=== PATIENT | male | born 1990 | race Caucasian/White ===

== ENCOUNTER 2016-10-15 17:06 | Emergency (ER) | payer BC, OTHER ==
[2016-10-15 17:19] VITALS: BP 154/92
--- NOTE | 2016-10-15 17:50 | UC ---
Throat Pain/Nasal Iraj HPI - HPI Summary HPI Summary: 26 yo male with 4 day hx of fatigue and sore throat no fever no myalgias no n/v/d no hx mono - History of Current Complaint Chief Complaint: UCRespiratory Stated Complaint: SORE THROAT Time Seen by Provider: 10/15/16 17:21 Hx Obtained From: Patient Onset/Duration: Gradual Onset, Lasting Days - 4 Severity: Moderate Pain Intensity: 4 Pain Scale Used: 0-10 Numeric Cough: None Related History: Prior ENT Surgery, T & A - Allergies/Home Medications Allergies/Adverse Reactions: Allergies Allergy/AdvReac Type Severity Reaction Status Date / Time Penicillins AdvReac thrush Verified 10/15/16 17:19 Home Medications: Home Medications Fluticasone NASAL SPRAY 50MCG* [Flonase NASAL SPRAY 50MCG*] 2 spray BOTH NARES DAILY PRN 10/15/16 [History Confirmed 10/15/16] PMH/Surg Hx/FS Hx/Imm Hx Previously Healthy: Yes - Surgical History Surgical History: Yes Surgery Procedure, Year, and Place: tonsils - Family History Known Family History: Positive: Hypertension, Other - mother and father alive and well Negative: Cardiac Disease - Social History Alcohol Use: Rare Substance Use Type: None Smoking Status (MU): Never Smoked Tobacco Review of Systems Constitutional: Fatigue Skin: Negative Eyes: Negative ENT: Sore Throat Respiratory: Negative Cardiovascular: Negative Gastrointestinal: Negative Genitourinary: Negative Motor: Negative Neurovascular: Negative Musculoskeletal: Negative Neurological: Negative Psychological: Negative All Other Systems Reviewed And Are Negative: Yes Physical Exam Triage Information Reviewed: Yes Appearance: Well-Appearing, No Pain Distress, Well-Nourished Vital Signs: Initial Vital Signs Temp 98 F 10/15/16 17:11 Pulse 107 10/15/16 17:11 Resp 20 10/15/16 17:11 BP 154/92 10/15/16 17:11 Vital Signs Reviewed: Yes Eyes: Positive: Conjunctiva Clear ENT: Positive: Hearing grossly normal, Pharyngeal erythema, TMs normal. Negative: Tonsillar swelling, Tonsillar exudate, Trismus, Muffled/hoarse voice Neck: Positive: Enlarged Nodes @ - ant cerv Respiratory: Positive: Lungs clear, Normal breath sounds, No respiratory distress, No accessory muscle use Cardiovascular: Positive: RRR, No Murmur, Tachycardia Abdomen Description: Positive: Nontender, No Organomegaly, Soft. Negative: CVA Tenderness (R), CVA Tenderness (L) Musculoskeletal: Positive: ROM Intact, No Edema Neurological: Positive: Alert Psychological Exam: Normal Skin Exam: Normal Throat Pain/Nasal Course/Dx - Course Course Of Treatment: RS (-) - Differential Dx/Diagnosis Provider Diagnoses: pharyngitis. fatigue Discharge - Discharge Plan Condition: Stable Disposition: HOME Prescriptions: Ibuprofen TAB* [Motrin TAB* 800 MG] 800 mg PO TID PRN #30 tab PRN Reason: Pain Patient Education Materials: Pharyngitis (ED) Forms: *Work Release Referrals: Terrell Wolf DO [Primary Care Provider] - If Needed (get BP rechecked your next visit ) Additional Instructions: recheck in 3-4 days if not better if symptoms persist you may need blood work to check for mono
== END 2016-10-15 18:02 | disposition home or self-care (01) ==
LOC: UCCORT 17:06
DX: J02.9 Acute pharyngitis, unspecified (principal); R53.83 Other fatigue; Z88.0 Allergy status to penicillin
CPT/HCPCS: 87651; 99212; G0463

== ENCOUNTER 2016-12-28 20:22 | Emergency (ER) | payer BC ==
[2016-12-28 20:29] VITALS: BP 154/103
--- NOTE | 2016-12-28 20:40 | UC ---
Knee Pain HPI - HPI Summary HPI Summary: Hurt right knee bowling this evening. Foot stuck and knee buckled. - History of Current Complaint Chief Complaint: UCLowerExtremity Stated Complaint: RIGHT KNEE PAIN Time Seen by Provider: 12/28/16 20:30 Hx Obtained From: Patient Onset/Duration: Sudden Onset - 11 AM, Still Present Severity Initially: Moderate Severity Currently: Moderate Character: Throbbing Aggravating Factor(s): Weight Bearing Alleviating Factor(s): Rest, Cold Associated Signs And Symptoms: Positive: Swelling Able to Bear Weight: Yes - Risk Factors Septic Arthritis Risk Factor: Negative Gout Risk Factor: Negative - Allergies/Home Medications Allergies/Adverse Reactions: Allergies Allergy/AdvReac Type Severity Reaction Status Date / Time Penicillins AdvReac thrush Verified 10/15/16 17:19 Home Medications: Home Medications HYDROcodone/ACETAMIN 5-325 MG* [[place] 5-325 TAB*] 2 tab PO ONCE PRN 12/28/16 [ History Confirmed 12/28/16] PMH/Surg Hx/FS Hx/Imm Hx Previously Healthy: Yes - Surgical History Surgical History: Yes Surgery Procedure, Year, and Place: tonsils - Family History Known Family History: Positive: Hypertension, Other - mother and father alive and well Negative: Cardiac Disease, Diabetes - Social History Occupation: Employed Full-time Lives: With Family Alcohol Use: Rare Substance Use Type: None Smoking Status (MU): Never Smoked Tobacco Review of Systems Constitutional: Negative Skin: Other - left great toe ingrown nail Musculoskeletal: Arthralgia - right knee Is Patient Immunocompromised?: No All Other Systems Reviewed And Are Negative: Yes Physical Exam Triage Information Reviewed: Yes Appearance: Well-Appearing, Well-Nourished, Pain Distress - mild Vital Signs: Initial Vital Signs Temp 97.3 F 12/28/16 20:27 Pulse 103 12/28/16 20:27 Resp 14 12/28/16 20:27 BP 154/103 12/28/16 20:27 Vital Signs Reviewed: Yes Eyes: Positive: Conjunctiva Clear Neck exam: Normal Respiratory: Positive: Lungs clear Cardiovascular Exam: Normal Musculoskeletal: Positive: Strength Intact, ROM Intact, Other: - right knee without effusion. Ligaments intact, negative McMurrays. Tender over the VMO. Neurological Exam: Normal Psychological Exam: Normal Skin: Positive: Other - swelling redness over the great toenail. Knee Pain Course/Dx - Differential Dx/Diagnosis Differential Diagnosis/HQI/PQRI: Sprain, Strain, Tendonitis Provider Diagnoses: Quadriceps muscle strain. Ingrown toenail left great toe. Discharge - Discharge Plan Condition: Stable Disposition: HOME Prescriptions: Mupirocin 2% OINT* [Bactroban 2 % Oint*] 1 applic TOPICAL TID #1 tube Patient Education Materials: Muscle Strain (ED), Ingrown Nail (ED), Mupirocin ( On the skin) Forms: *Work Release Additional Instructions: Get wide work boots. [employer] in [place] can resole boots. Dig under the edge of the nail with the end of the nail file. Wedge a piece of cotton under the nail until it grows out beyond the skin. Cut the nail straight across to prevent it from getting ingrown again.
== END 2016-12-28 21:00 | disposition home or self-care (01) ==
LOC: UCCORT 20:22
DX: S76.111A Strain of right quadriceps muscle, fascia and tendon, initial encounter (principal); Z88.0 Allergy status to penicillin; X58.XXXA Exposure to other specified factors, initial encounter; Y93.54 Activity, bowling; Y92.9 Unspecified place or not applicable; L60.0 Ingrowing nail
CPT/HCPCS: 99212; G0463

== ENCOUNTER 2017-04-13 21:28 | Emergency (ER) | payer BC ==
[2017-04-13 21:42] VITALS: BP 155/103
--- NOTE | 2017-04-13 21:50 | ED ---
Lower Extremity - HPI Summary HPI Summary: 27 yrold male with the complaint of persistent right knee pain. The patient states his right knee buckled back in December when bowling and he has persitent pain above the patella . No redness, no swelling, no knee effusion. No fever or chills. He states standing on concrete all the time seems to aggravate things. Pain is moderate. - History of Current Complaint Chief Complaint: UCLowerExtremity Stated Complaint: RIGHT KNEE PAIN Time Seen by Provider: 04/13/17 21:36 Pain Intensity: 8 - Allergies/Home Medications Allergies/Adverse Reactions: Allergies Allergy/AdvReac Type Severity Reaction Status Date / Time Penicillins AdvReac thrush Verified 04/13/17 21:37 Home Medications: Home Medications NK [No Home Medications Reported] 04/13/17 [History Confirmed 04/13/17] PMH/Surg Hx/FS Hx/Imm Hx - Surgical History Surgery Procedure, Year, and Place: tonsils Infectious Disease History: No Infectious Disease History: Denies: Traveled Outside the [place] in Last 30 Days - Family History Known Family History: Positive: Hypertension, Other - mother and father alive and well Negative: Cardiac Disease, Diabetes - Social History Alcohol Use: None Substance Use Type: Reports: None Smoking Status (MU): Never Smoked Tobacco Review of Systems Positive: Other - pain right knee All Other Systems Reviewed And Are Negative: Yes Physical Exam Triage Information Reviewed: Yes Vital Signs On Initial Exam: Initial Vitals Temp Pulse Resp BP Pulse Ox 98 F 83 16 155/103 99 04/13/17 21:37 04/13/17 21:37 04/13/17 21:37 04/13/17 21:37 04/13/17 21:37 Vital Signs Reviewed: Yes Appearance: Positive: Well-Appearing, No Pain Distress Skin: Positive: Warm, Skin Color Reflects Adequate Perfusion Head/Face: Positive: Normal Head/Face Inspection Eyes: Positive: EOMI ENT: Positive: TMs normal Neck: Positive: Nontender Respiratory/Lung Sounds: Positive: Other - no respiratory distress Musculoskeletal: Positive: Strength/ROM Intact, Other - right knee without effusion, bruising, redness, increased warmth. He is tender over the suprapatellar portion of the quads tendon right leg. No lower leg swelling. No popliteal swelling or tenderness. Neurological: Positive: Sensory/Motor Intact, Alert, Oriented to Person Place, Time, CN Intact II-III Psychiatric: Positive: Normal - Ruiz Coma Scale Best Eye Response: 4 - Spontaneous Best Motor Response: 6 - Obeys Commands Best Verbal Response: 5 - Oriented Coma Scale Total: 15 Diagnostics - Vital Signs Vital Signs Temp Pulse Resp BP Pulse Ox 04/13/17 21:37 98 F 83 16 155/103 99 - Laboratory Lab Statement: Any lab studies that have been ordered have been reviewed, and results considered in the medical decision making process. - Radiology xray right knee Xray Interpretation: No Acute Changes Radiology Interpretation Completed By: Radiologist - final report reviewed. Lower Extremity Course/Dx - Course Course Of Treatment: 27 yr old male with patellar tendon strain. Dc HOme and fu with orthopedic surgery as outpatient. - Diagnoses Provider Diagnoses: Patellar tendonitis of right knee Discharge - Discharge Plan Condition: Good Disposition: HOME Patient Education Materials: Patellar Tendinitis (ED), Hypertension (ED) Referrals: No Primary Care Phys,NOPCP [Primary Care Provider] - Miguel Mauricio MD [Medical Doctor] - 1 Day
--- NOTE | 2017-04-13 21:57 | RAD ---
INDICATION: Right knee pain. TECHNIQUE: 4 views of the right knee were obtained. FINDINGS: The bones are in normal alignment. No joint effusion or fracture is seen. Joint spaces appear maintained. IMPRESSION: NO EVIDENCE FOR FRACTURE.
== END 2017-04-13 22:05 | disposition home or self-care (01) ==
LOC: UCCORT 21:28
DX: M76.51 Patellar tendinitis, right knee (principal); Z88.0 Allergy status to penicillin
CPT/HCPCS: 99211; G0463